=== PATIENT | male | born 1970 ===

== ENCOUNTER 2019-10-28 18:52 | Emergency (ER) | payer OTHER ==
[~2019-10-28] VITALS: Ht 177.8 cm; Wt 77.7 kg
[2019-10-28 18:57] VITALS: BP 112/68
== END 2019-10-28 19:43 | disposition home or self-care (01) ==
LOC: ED 19:00
DX: T16.2XXA Foreign body in left ear, initial encounter (principal); X58.XXXA Exposure to other specified factors, initial encounter; Y93.89 Activity, other specified; Y92.89 Other specified places as the place of occurrence of the external cause; Y99.8 Other external cause status
CPT/HCPCS: 99281; 99284